=== PATIENT | female | born 1990 | race Caucasian/White ===

== ENCOUNTER 2022-12-31 11:36 | Outpatient (CLI) | payer BC, SELFPAY | END 2022-12-31 11:37 | disposition home or self-care (01) | LOC: NFLDREF 11:37 | PROVIDERS: Visit Provider Advanced Practice Midwife | DX: Z01.419 Encounter for gynecological examination (general) (routine) without abnormal findings (principal); Z13.6 Encounter for screening for cardiovascular disorders; Z13.29 Encounter for screening for other suspected endocrine disorder | CPT/HCPCS: 80061; 84443 ==

== ENCOUNTER 2024-12-09 10:28 | Outpatient (CLI) | payer OTHER, SELFPAY ==
[2024-12-11 04:16] LABS: HPV Source Cervical
[2024-12-15 09:05] LABS: Pap Test Digital Imaging Done
== END 2024-12-09 10:29 | disposition home or self-care (01) ==
PROVIDERS: Visit Provider Physician Assistant
DX: N89.8 Other specified noninflammatory disorders of vagina (principal); Z12.4 Encounter for screening for malignant neoplasm of cervix; Z11.51 Encounter for screening for human papillomavirus (HPV)
CPT/HCPCS: 87624; 87625; 88141; 88142; 88175

== ENCOUNTER 2024-12-14 08:40 | Outpatient (CLI) | payer OTHER, SELFPAY | END 2024-12-14 08:41 | disposition home or self-care (01) | LOC: NFLDREF 12-16 10:48 | PROVIDERS: Visit Provider Physician Assistant | DX: N89.8 Other specified noninflammatory disorders of vagina (principal); Z13.29 Encounter for screening for other suspected endocrine disorder; Z13.6 Encounter for screening for cardiovascular disorders; Z13.1 Encounter for screening for diabetes mellitus; Z13.9 Encounter for screening, unspecified | CPT/HCPCS: 80061; 82947; 84443 ==